=== PATIENT | male | born 1975 | race American Indian/Alaskan Native ===

== ENCOUNTER 2021-11-20 10:07 | Emergency (ER) | payer OTHER ==
[2021-11-20 10:19] VITALS: BP 161/102
--- NOTE | 2021-11-20 11:49 | Vascular Lab Report ---
DUPLEX DOPPLER LOWER EXTREMITY VEINS, LEFT INDICATION / CLINICAL INFORMATION: leg swelling. TECHNIQUE: Duplex doppler imaging was performed through the veins of the left lower extremity using v enous compression and other maneuvers. COMPARISON: None available. FINDINGS: LEFT COMMON FEMORAL VEIN: Negative. LEFT FEMORAL VEIN: Negative. LEFT POPLITEAL VEIN: Negative. LEFT CALF VEINS: Negative. ADDITIONAL FINDINGS: Left groin nodes are morphologically unremarkable measuring up to 9 mm in the sh ort axis. IMPRESSION: 1. No sonographic evidence for DVT in the left lower extremity. Signer Name: Palomo Kong MD Signed: 11/20/2021 11:45 AM Workstation Name: [id number]
--- NOTE | 2021-11-20 12:22 | Emergency Department Report ---
ED Extremity Problem HPI - General Chief complaint: Extremity Injury, Lower Stated complaint: LT LEG PAIN Time Seen by Provider: 11/20/21 12:01 Source: patient Mode of arrival: Ambulatory Limitations: No Limitations - History of Present Illness Initial comments: 46-year-old black male with no past medical history resents to the emergency department for evaluation of worsening left leg pain and swelling. He states that swelling started 3 to 4 days ago and he had a 7-hour road trip 2 days prior to the start of his symptoms. He denies fever, chest pain, shortness of breath, and hemoptysis. He states that he also has an abrasion to the area and has had small amount of purulent drainage from area. Patient is also requesting refill of antifungal medication for recurrent athletes feet. MD Complaint: extremity pain, extremity swelling -: Gradual, days(s) (3-4) Location: left, lower extremity History of Same: No -: No myalgia, No arthralgia, No fever, No associated dyspnea, No associated chest pain Severity scale (0 -10): 6 Quality: aching Consistency: constant Associated Symptoms: denies: chest pain, shortness of breath, fever, myalgias, arthralgias, rash - Related Data Previous Rx's Medication Instructions Recorded Last Taken Type Butenafine HCl 1 applicatio TP BID 14 Days #1 tube 11/20/21 Unknown Rx Sulfamethoxazole/Trimethoprim 1 each PO BID 7 Days #14 tab 11/20/21 Unknown Rx [Bactrim DS TAB] Allergies Allergy/AdvReac Type Severity Reaction Status Date / Time No Known Allergies Allergy Verified 11/20/21 10:20 ED Review of Systems ROS: Stated complaint: LT LEG PAIN Other details as noted in HPI Comment: All other systems reviewed and negative Constitutional: denies: chills, fever Respiratory: denies: shortness of breath, SOB with exertion Cardiovascular: denies: chest pain, palpitations Gastrointestinal: denies: abdominal pain, nausea, vomiting Genitourinary: denies: urgency, dysuria Musculoskeletal: denies: back pain Neurological: denies: headache, weakness ED Past Medical Hx - Medications Home Medications: Home Medications Medication Instructions Recorded Confirmed Last Taken Type Butenafine HCl 1 applicatio TP BID 14 Days #1 tube 11/20/21 Unknown Rx Sulfamethoxazole/Trimethoprim 1 each PO BID 7 Days #14 tab 11/20/21 Unknown Rx [Bactrim DS TAB] ED Physical Exam - General Limitations: No Limitations General appearance: alert, in no apparent distress - Head Head exam: Present: atraumatic, normocephalic - Eye Eye exam: Present: normal appearance. Absent: conjunctival injection, periorbital swelling, periorbital tenderness - Neck Neck exam: Present: normal inspection, full ROM. Absent: tenderness, lymphadenopathy - Respiratory Respiratory exam: Present: normal lung sounds bilaterally. Absent: respiratory distress, wheezes, rales, rhonchi, stridor, chest wall tenderness - Cardiovascular Cardiovascular Exam: Present: regular rate, normal heart sounds - GI/Abdominal GI/Abdominal exam: Present: soft, normal bowel sounds. Absent: distended, tenderness, guarding, rebound, rigid - Expanded Lower Extremity Exam Left Upper Leg exam: Present: normal inspection Knee exam: Present: normal inspection Lower Leg exam: Present: tenderness, swelling, abrasion, erythema. Absent: laceration, ecchymosis, deformity, crepidus Ankle exam: Present: swelling Foot/Toe exam: Present: tenderness. Absent: swelling Neuro vascular tendon exam: Present: no vascular compromise. Absent: pulse deficit, abnormal cap refill, sensory deficit, extremity cold to touch, pallor Gait: Positive: observed and normal - Back Exam Back exam: Present: normal inspection - Neurological Exam Neurological exam: Present: alert, oriented X3, normal gait - Psychiatric Psychiatric exam: Present: normal affect, normal mood - Skin Skin exam: Present: warm, dry, normal color, erythema (Left lower leg), abrasion (Left lower leg) ED Course Vital Signs 11/20/21 10:14 Temperature 98.2 F Pulse Rate 88 Respiratory 18 Rate Blood Pressure 161/102 [Right] O2 Sat by Pulse 100 Oximetry ED Medical Decision Making - Radiology Data Radiology results: report reviewed, image reviewed Venous Doppler ultrasound left leg: FINDINGS: LEFT COMMON FEMORAL VEIN: Negative. LEFT FEMORAL VEIN: Negative. LEFT POPLITEAL VEIN: Negative. LEFT CALF VEINS: Negative. ADDITIONAL FINDINGS: Left groin nodes are morphologically unremarkable measuring up to 9 mm in the short axis. IMPRESSION: 1. No sonographic evidence for DVT in the left lower extremity. - Medical Decision Making 46-year-old black male with no past medical history resents to the emergency department for evaluation of worsening left leg pain and swelling. He states that swelling started 3 to 4 days ago and he had a 7-hour road trip 2 days prior to the start of his symptoms. He denies fever, chest pain, shortness of breath, and hemoptysis. He states that he also has an abrasion to the area and has had small amount of purulent drainage from area. Patient is also requesting refill of antifungal medication for recurrent athletes feet. Venous Doppler ultrasound of left lower extremity negative for DVT. Physical exam of left lower leg consistent with cellulitis. Patient be discharged home with 7-day course of Bactrim. He was also given refill of antifungal medication for athletes feet. He is advised to take medications as prescribed and follow- up with his primary care provider if no improvement or worsening symptoms. He is advised to return to the emergency department if he develops fever. He verbalizes understanding of and agreement with plan of care. Critical care attestation.: If time is entered above; I have spent that time in minutes in the direct care of this critically ill patient, excluding procedure time. ED Disposition Clinical Impression: Left leg cellulitis, Athlete's foot on left Disposition: 01 HOME / SELF CARE / HOMELESS Is pt being admited?: No Does the pt Need Aspirin: No Condition: Stable Instructions: Athlete's Foot, [id number], Cellulitis, Adult, [id number] Additional Instructions: Take medications as prescribed. Follow-up with your primary care provider if no improvement or worsening symptoms. Return to the emergency department as needed. Prescriptions: Sulfamethoxazole/Trimethoprim [Bactrim DS TAB] 1 each PO BID 7 Days #14 tab Butenafine HCl 1 applicatio TP BID 14 Days #1 tube Referrals: OSCAR BOUDREAUX MD [Staff Physician] - 3-5 Days Forms: Work/School Release Form(ED) Time of Disposition: 12:22
== END 2021-11-20 12:52 | disposition home or self-care (01) ==
LOC: ED 10:07
DX: B35.3 Tinea pedis (principal); L03.116 Cellulitis of left lower limb
CPT/HCPCS: 99283